=== PATIENT | female | born 2000 | race Two or more races ===

== ENCOUNTER 2024-05-08 01:13 | Emergency (ER) | payer MEDICAID, SELFPAY ==
--- NOTE | 2024-05-08 01:17 | EKG_ITS ---
[facility] Test Date: 2024-05-08 Pat Name: BRIA VILLARREAL Department: Room: - Gender: Female Production Scheduler: : 2000 Requested By: Prabhakar Godoy Order Number: [id number] Reading MD: Prabhakar Godoy Measurements Intervals [place] Rate: 89 P: 261 MD: 126 QRS: 78 QRSD: 83 T: 45 QT: 351 QTc: 429 Interpretive Statements JUNCTIONAL RHYTHM ABNORMAL RHYTHM ECG Compared to ECG 04/08/2023 23:21:50 Junctional rhythm now present Sinus tachycardia no longer present /store/S0/[id number]
[2024-05-08 01:39] VITALS: BP 112/67; PULSE 106; RESP 18; TEMP 36.9; O2SAT 96
--- NOTE | 2024-05-08 01:58 | PD.EDRME ---
Rapid Medical Screening Exam [facility] Arrival date/time: 05/08/24 01:13 23F with history of anemia presents to ED with 2 days of chest pain/tightness and N/V. Patient denies URI symptoms. Chief Complaint: Chest Pain Vital signs: Vital Signs Temperature 98.4 F 05/08/24 01:39 Pulse Rate 106 H 05/08/24 01:39 Respiratory Rate 18 05/08/24 01:39 Blood Pressure 112/67 05/08/24 01:39 Pulse Oximetry (%) 96 05/08/24 01:39 Oxygen Delivery Method Room Air 05/08/24 01:39
[2024-05-08 02:34] LABS: Basophils % (Auto) 0 % (0-2.5); Eosinophils # (Auto) 0.2 Thou/mm3 (0.0-0.5); Eosinophils % (Auto) 2 % (0-10); Hematocrit 30.4 % (36.0-46.0); Immature Granulocytes % (Auto) 0 % (0-0); Immature Granulocytes Auto 0.02 Thou/mm3 (0.00-0.00); Lymphocytes # (Auto) 5.9 Thou/mm3 (1.0-4.8); Lymphocytes % (Auto) 48 % (10-50); Mean Corpuscular HGB Conc 29.6 g/dl (31.0-37.0); Mean Corpuscular Hemoglobin 20.8 pg (25.0-35.0); Mean Corpuscular Volume 70 fL (80-100); Monocytes # (Auto) 0.7 Thou/mm3 (0.0-0.8); Monocytes % (Auto) 6 % (0-12); Neutrophils # (Auto) 5.5 Thou/mm3 (1.8-7.7); Neutrophils % (Auto) 44 % (37-80); Nucleated Red Blood Cell % 0 /100 WBC (0); Platelet Count 471 Thou/mm3 (140-440); RDW Standard Deviation 40.7 fL (36.4-46.3); Red Blood Count 4.33 Miln/mm3 (4.00-5.20); White Blood Count 12.4 Thou/mm3 (3.6-11.0)
[2024-05-08 03:09] LABS: Albumin, Serum 4.3 gm/dL (3.5-5.0); Albumin/Globulin Ratio 1.5 (1.2-2.2); Alkaline Phosphatase 73 U/L (46-116); Anion Gap 9 (7-16); Aspartate Amino Transferase 11 U/L (0-34); BUN/Creatinine Ratio 17 Ratio (12-20); Bilirubin,Total 0.2 mg/dL (0.3-1.2); Blood Urea Nitrogen 12 mg/dL (9-23); Calcium 8.9 mg/dL (8.3-10.6); Calcium (Corrected) 8.9 mg/dL (8.5-10.1); Carbon Dioxide 23.7 mMol/L (20.0-31.0); Chloride 108 mMol/L (98-107); Creatinine (Component) 0.7 mg/dL (0.6-1.3); Estimated Creatinine Clearance 158.4 mL/min (>60); Globulin 2.9 gm/dL (2.3-3.5); Glucose 98 mg/dL (74-106); Magnesium 1.8 mg/dL (1.6-2.6); Osmolality,Calculated 280 (275-295); Potassium 3.9 mMol/L (3.4-5.1); Sodium 141 mMol/L (136-145); Total Protein 7.2 gm/dL (5.7-8.2); Troponin I < 0.002 ng/mL (0.0-0.045); eGFR > 60 See Note
[2024-05-08 03:11] LABS: Alanine Aminotransferase < 7 U/L (10-49)
[2024-05-08 06:12] VITALS: BP 112/71; PULSE 95; RESP 16; TEMP 36.8; O2SAT 97
--- NOTE | 2024-05-08 06:13 | PD.EDCHEST ---
ED Chest Pain RME/HPI General Chief Complaint: Chest Pain Stated Complaint: CHEST PAIN,N/V Time Seen by Provider: 05/08/24 06:14 Source: patient Arrival date/time: 05/08/24 01:13 23-year-old female with no known medical history presents to the emergency room with a chief complaint of chest pain, nausea, vomiting x 2 days. Mode of arrival: ambulatory Limitations: no limitations RME / HPI RME / HPI narrative: 05/08/24 01:13 23F with history of anemia presents to ED with 2 days of chest pain/tightness and N/V. Patient denies URI symptoms. Related Data Previous Rx's ?Medication ?Instructions ?Recorded acetaminophen 300 mg-codeine 15 mg 1 tab PO BID PRN pain #14 tabs 05/03/23 tablet meclizine 25 mg tablet 25 mg PO TID PRN dizziness #20 tabs 11/23/23 ondansetron 4 mg disintegrating 4 mg PO Q8H PRN nausea and 11/23/23 tablet vomiting #15 tabs ferrous sulfate 325 mg (65 mg 325 mg PO Q OTHER DAY #20 tabs 05/08/24 iron) tablet (iron) ondansetron 4 mg disintegrating 4 mg PO Q8H PRN nausea and 05/08/24 tablet vomiting #14 tabs Allergies Allergy/AdvReac Type Severity Reaction Status Date / Time No Known Allergies Allergy Verified 11/27/23 20:01 Review of Systems Review of Systems Systems Reviewed: All systems reviewed, normal except as documented Constitutional Constitutional: Reports system reviewed and no additional complaints, except as documented, Denies fatigue, Denies fever(s), Denies headache(s) and Reports weakness Eyes Eyes: Reports system reviewed and no additional complaints, except as documented, Denies blurry vision and Denies change in vision ENT Ears, Nose, Mouth, and Throat: Reports system reviewed and no additional complaints, except as documented, Denies otalgia, Denies headache(s), Denies nasal congestion, Denies throat swelling and Denies vertigo Cardiovascular Cardiovascular: Reports system reviewed and no additional complaints, except as documented, Reports chest pain, Reports chest pain at rest, Reports chest pain with activity, Denies dyspnea and Denies dyspnea on exertion Respiratory Respiratory: Reports system reviewed and no additional complaints, except as documented, Denies chest congestion, Denies cough, Denies dyspnea, Denies dyspnea on exertion and Denies wheezing Gastrointestinal Gastrointestinal: Reports system reviewed and no additional complaints, except as documented, Denies abdominal pain, Denies cramping, Denies nausea and Denies vomiting Genitourinary Genitourinary: Reports system reviewed and no additional complaints, except as documented Musculoskeletal Musculoskeletal: Reports system reviewed and no additional complaints, except as documented and Denies back pain Integumentary/Breasts Skin/Breast: Reports system reviewed and no additional complaints, except as documented and Denies wounds Neurologic Neurologic: Reports system reviewed and no additional complaints, except as documented, Denies confusion, Denies headache(s), Denies lack of coordination, Denies vertigo and Reports weakness Psychiatric Psychiatric: Reports system reviewed and no additional complaints, except as documented, Denies anxiety, Denies confusion, Denies depression, Denies paranoia, Denies suicidal ideation and Denies tactile hallucinations Endocrine Endocrine: Reports system reviewed and no additional complaints, except as documented and Denies fatigue Hematologic/Lymphatic Hematologic/Lymphatic: Reports system reviewed and no additional complaints, except as documented and Denies lymphadenopathy Allergic/Immunologic Allergic/Immunologic: Reports system reviewed and no additional complaints, except as documented, Denies throat swelling, Denies urticaria and Denies wheezing Past Medical History Past Medical History NEUROLOGIC: Negative Neurological Disorders or Seizures CARDIAC: Negative Cardiac Disorders or Congestive Heart Failure RESPIRATORY: Negative Chronic Obstructive Pulmonary Disease (COPD) or Asthma GASTROINTESTINAL: Negative Gastrointestinal Disorders GENITOURINARY: Positive Genitourinary Disorders (kidney infection); Negative Renal Disease MUSCULOSKELETAL: Positive Musculoskeletal Disorders and Scoliosis ENDOCRINE: Negative Endocrine Disorders, Diabetes Mellitus Type 1 or Diabetes Mellitus Type 2 HEMATOLOGIC: Negative Blood Disorders or Sickle Cell Disease PSYCHO/SOCIAL: Positive Depression and Anxiety OTHER HISTORY: Negative Autoimmune Disease or Blood Transfusions Family History FAMILY HISTORY: Negative Family Psychiatric Problems, Family Respiratory Disorders, Family Cardiac Disorders, Family Gastrointestinal Problems, Family Cancer, Family Surgery or Family Anesthesia Reaction Surgical History SURGICAL: Positive Section Social History SMOKING STATUS: Never smoker SUBSTANCE USE: does not use ED Exam General Limitations: Present no limitations General appearance: Present alert and in no apparent distress Head Head exam: Present atraumatic Eye Eye exam: Present normal appearance, PERRL and EOMI ENT ENT exam: Present normal exam, normal oropharynx and mucous membranes moist Neck Neck exam: Present normal inspection, full ROM and trachea midline Chest Chest inspection: Present normal inspection and symmetric chest wall rise Respiratory Respiratory exam: Present normal lung sounds bilaterally; Absent respiratory distress, wheezes, stridor, accessory muscle use or prolonged expiratory phase Cardiovascular Cardiovascular exam: Present regular rate, normal rhythm, tachycardia, normal heart sounds, +S1 and +S2; Absent bradycardia, irregular rhythm, systolic murmur, diastolic murmur, rubs, gallop, clicks or JVD Abdominal Exam Abdominal exam: Present soft and normal bowel sounds; Absent distention, tenderness, guarding, rebound or rigidity Extremities Exam Extremities exam: Present normal inspection and full ROM Back Exam Back exam: Present normal inspection and full ROM Neurological Exam Neurological exam: Present alert, oriented X3 and CN II-XII intact Psychiatric Psychiatric exam: Present normal affect and normal mood Skin Skin exam: Present warm, dry, intact and normal color Course Quality Measures none Orders Category Date Time Status EKG (ED ONLY) *Do not use* NOW Care 05/08/24 01:17 Completed EKG (ED Only) Stat Exams 05/08/24 01:17 Draft CBC Stat Lab 05/08/24 02:23 Completed Comprehensive Metabolic Panel Stat Lab 05/08/24 02:23 Completed Magnesium Stat Lab 05/08/24 02:23 Completed Path Review Blood Smear Stat Lab 05/08/24 02:23 Completed Troponin I Stat Lab 05/08/24 02:23 Completed Vital Signs Vital signs: Vital Signs Temperature 98.4 F 05/08/24 01:39 Pulse Rate 106 H 05/08/24 01:39 Respiratory Rate 18 05/08/24 01:39 Blood Pressure 112/67 05/08/24 01:39 Pulse Oximetry (%) 96 05/08/24 01:39 Oxygen Delivery Method Room Air 05/08/24 01:39 O2 saturation 96% within normal limits Procedures -ED EKG Interpretation #1: Date of EK05/08/24 Rate: 89 Interpretation: Reviewed by me EKG Impression: Junctional Additional EKG comment: Patient has a junctional rhythm at [address] deviation Chest Pain [facility] Narrative [facility] Narrative:: 23-year-old female with no known medical history presents to the emergency room with a chief complaint of chest pain, nausea, vomiting x 2 days. Patient is hemodynamically stable and in no apparent distress Physical examination shows 3 out of 10 continuous sternal chest pain that does not radiate. The patient has strong and regular pulses bilaterally. Lung sounds were clear bilaterally with no wheezing or any abnormal breath sounds. Abdomen is soft and nontender with active bowel sounds to all 4 quadrants. CBC CMP showed iron deficiency anemia. Troponin was negative. There is no leukocytosis. EKG shows a junctional rhythm at [address] deviation Patient was discharged and educated to follow-up with primary care provider and return to the emergency room for any evidence of worsening signs or symptoms Patient data External records reviewed:: [facility] previous records Clinical information provided by:: patient Social determinants that could affect healthcare access:: none Patient has the following chronic illnesses:: No chronic illness How is presenting disease/condition affected by chronic disease/condition?: no chronic disease Evaluation data The following diagnostics were reviewed and interpreted by me:: lab results and radiology exam(s) Lab and/or radiology exams considered but not ordered:: Labs and radiology exams considered and ordered Interpretation Summary: N/A Medications / Prescriptions Medications or Prescriptions considered but not ordered:: Medication given Medication administrations:: Rx given Consultations Consultation(s) initiated? (list below): No Diagnosis Chest Pain Differential Diagnosis: stable angina, atypical chest pain, st elevation myocardial infarction, costochondritis and chest pain Most likely diagnosis given after review of the tests above:: Chest pain Admission Indicated Admission indicated?: not indicated Admission Request Was there a request for admission?: No Disposition Plan Disposition Plan: Discharge Discharge Attestation Discharge Attestation: The patient and all family members were given an opportunity to ask questions and understood the discharge instructions. Discharge instructions specifically effects, indications for sooner follow up or return to the emergency department, and the expected course of current diagnosis. Patient condition: Stable Discharge Plan Plan Patient Disposition: HOME (Self Care) Disposition Comment: Stable Prescriptions/Referrals Prescriptions/Med Rec: New ferrous sulfate [iron] 325 mg (65 mg iron) tablet 325 mg PO Q OTHER DAY Qty: 20 0RF ondansetron 4 mg tablet,disintegrating 4 mg PO Q8H PRN (Reason: nausea and vomiting) Qty: 14 0RF No Action meclizine 25 mg tablet 25 mg PO TID PRN (Reason: dizziness) Qty: 20 0RF ondansetron 4 mg tablet,disintegrating 4 mg PO Q8H PRN (Reason: nausea and vomiting) Qty: 15 0RF acetaminophen-codeine 300-15 mg tablet 1 tab PO BID PRN (Reason: pain) Qty: 14 0RF Referrals: Rafi Brewer MD [Primary Care Provider] - In 1 week Problem List Clinical Impression: Iron (Fe) deficiency anemia Patient/Caregiver Discharge Instructions Education Materials: Iron Supplements, ED Anemia, Iron-Deficiency (Adult) Additional Instructions: Please follow-up with your primary care provider in the next 24 to 48 hours. Your cardiac examination was within normal limits. At this time your chest pain is not cardiac related. Your blood work did show iron deficiency anemia. Iron supplementation was sent to your pharmacy please pick it up and take it as indicated. For any evidence of worsening signs or symptoms please return the emergency room immediately Print Language: Albanian Stand Alone Forms: [employer] Info., Patient Portal Info Letter PA/GOLF COURSE MANAGER Supervising Physician PA/GOLF COURSE MANAGER Supervising Physician: Dr. AVILES
[2024-05-08 14:37] LABS: Path Review Blood Smear Sent to Pathologist
== END 2024-05-08 06:17 | disposition home or self-care (01) ==
PROVIDERS: Physician Assistant; Emergency Provider Emergency Medicine; PCP Family Medicine
DX: D50.9 Iron deficiency anemia, unspecified (principal); R07.9 Chest pain, unspecified
CPT/HCPCS: 36415; 80053; 83735; 84484; 85025; 93005; 99283

== ENCOUNTER 2024-05-14 23:59 | Emergency (ER) | payer MEDICAID, SELFPAY ==
--- NOTE | 2024-05-15 00:05 | PC.NURSE ---
While doing doing triage assessment pt said she will just go to other hospital.
--- NOTE | 2024-05-15 00:05 | PD.EDADDENDU ---
Emergency Room Addendum Addendum Narrative: I called her to start evaluation and treatment. Was told she left. Navdeep Veras MD
== END 2024-05-15 00:07 | disposition left against medical advice (07) ==
PROVIDERS: Emergency Provider Emergency Medicine
DX: Z53.21 Procedure and treatment not carried out due to patient leaving prior to being seen by health care provider (principal)

== ENCOUNTER 2024-08-11 21:08 | Emergency (ER) | payer MEDICAID, SELFPAY ==
[2024-08-11 21:09] VITALS: BMI 30.8
--- NOTE | 2024-08-11 21:37 | XR_ITS ---
Examination: PA lateral chest 2 views TECHNIQUE: Upright PA and lateral chest 2 views Date and time: August 11, 2024 2152 hours INDICATIONS: Left breast pain today. FINDINGS: Subtle increased markings left base Right lung. Normal heart size IMPRESSION: Suspicious for early left basilar pneumonia
--- NOTE | 2024-08-11 21:40 | PD.EDADULT ---
ED General RME/HPI General Chief complaint: Chest Pain Stated complaint: MID CHEST PAIN RADIATES TO BREAST Time Seen by Provider: 08/11/24 21:32 Arrival date/time: 08/11/24 21:08 CC: Left nipple pain that radiates into the entire left breast ongoing for the past 24 hours progressive increase in severity not relieved with ibuprofen or Tylenol. Patient has had recurrent history of left breast pain multiple times in the past that she has had multiple workups that resulted nothing. Patient denies fever chills chest pain shortness of breath difficulty breathing is currently on her menses. No other complaints at this time Related Data Previous Rx's ?Medication ?Instructions ?Recorded acetaminophen 300 mg-codeine 15 mg 1 tab PO BID PRN pain #14 tabs 05/03/23 tablet meclizine 25 mg tablet 25 mg PO TID PRN dizziness #20 tabs 11/23/23 ondansetron 4 mg disintegrating 4 mg PO Q8H PRN nausea and 11/23/23 tablet vomiting #15 tabs ferrous sulfate 325 mg (65 mg 325 mg PO Q OTHER DAY #20 tabs 05/08/24 iron) tablet (iron) ondansetron 4 mg disintegrating 4 mg PO Q8H PRN nausea and 05/08/24 tablet vomiting #14 tabs doxycycline hyclate 100 mg capsule 100 mg PO BID #14 caps 08/11/24 gabapentin 100 mg capsule 100 mg PO BID #20 caps 08/11/24 Allergies Allergy/AdvReac Type Severity Reaction Status Date / Time No Known Allergies Allergy Verified 11/27/23 20:01 Review of Systems Review of Systems Narrative Review of Systems: GEN: No fever, no chills, no weight loss EYES: No discharge, no visual changes, no pain HEENT: No ear pain, no congestion, no sore throat PULM: No shortness of breath, no cough, no congestion CV: No chest pain, no dyspnea on exertion, no palpitations GI: No nausea, no vomiting, no diarrhea, no pain, no constipation : No frequency, no urgency, no dysuria MUSC/SKEL: No joint pain, no back pain SKIN: No rash PSYCH: No hallucinations, no depression HEME/LYMPH: No easy bleeding or bruising tendencies NEURO: No weakness, no headache Past Medical History Past Medical History NEUROLOGIC: Negative Neurological Disorders or Seizures CARDIAC: Negative Cardiac Disorders or Congestive Heart Failure RESPIRATORY: Negative Chronic Obstructive Pulmonary Disease (COPD) or Asthma GASTROINTESTINAL: Negative Gastrointestinal Disorders GENITOURINARY: Positive Genitourinary Disorders (kidney infection); Negative Renal Disease MUSCULOSKELETAL: Positive Musculoskeletal Disorders and Scoliosis ENDOCRINE: Negative Endocrine Disorders, Diabetes Mellitus Type 1 or Diabetes Mellitus Type 2 HEMATOLOGIC: Negative Blood Disorders or Sickle Cell Disease PSYCHO/SOCIAL: Positive Depression and Anxiety OTHER HISTORY: Negative Autoimmune Disease or Blood Transfusions Family History FAMILY HISTORY: Negative Family Psychiatric Problems, Family Respiratory Disorders, Family Cardiac Disorders, Family Gastrointestinal Problems, Family Cancer, Family Surgery or Family Anesthesia Reaction Surgical History SURGICAL: Positive Section Social History SMOKING STATUS: Never smoker SUBSTANCE USE: does not use ED Exam Narrative Physical exam: [General: Not in any acute distress Head normocephalic HEENT: Within acceptable limits Neck is supple nontender Chest equal chest rise nontender to palpation breast: Bilateral breast symmetrical, no dimpling no erythema no edema not firm to touch no exudate or oozing from the nipple itself. No streaking. Respiratory: Clear to auscultation no wheezes crackles or rubs CV: Rate rhythm is regular no murmurs rubs or clicks Abdomen is soft nontender no masses positive bowel sounds all 4 quadrants Back: No CVA tenderness no spinous process tenderness from cervical spine thoracic and lumbar spine Skin: Intact no petechiae rash induration ulceration or crepitus Extremities: Moving all extremity against resistance cap refill less than 2 seconds neurosensory intact Neuro: Awake alert oriented x3 Glascow coma 15 no focal deficits] Course Course Course Narrative: Read of the x-ray suspicion for left base pneumonia this may or may not be represented in the breast itself At this time patient will be addressed with antibiotics and gabapentin she is to follow-up with her primary care provider. Quality Measures none Orders Category Date Time Status XR chest 2V Stat Exams 08/11/24 21:37 Completed HCG Qualitative,Urine Stat Lab 08/11/24 21:43 Received Discharge Plan Plan Patient Disposition: HOME (Self Care) Patient condition on transfer: Stable Prescriptions/Referrals Prescriptions/Med Rec: New doxycycline hyclate 100 mg capsule 100 mg PO BID Qty: 14 0RF gabapentin 100 mg capsule 100 mg PO BID Qty: 20 0RF No Action meclizine 25 mg tablet 25 mg PO TID PRN (Reason: dizziness) Qty: 20 0RF ondansetron 4 mg tablet,disintegrating 4 mg PO Q8H PRN (Reason: nausea and vomiting) Qty: 15 0RF acetaminophen-codeine 300-15 mg tablet 1 tab PO BID PRN (Reason: pain) Qty: 14 0RF ferrous sulfate [iron] 325 mg (65 mg iron) tablet 325 mg PO Q OTHER DAY Qty: 20 0RF ondansetron 4 mg tablet,disintegrating 4 mg PO Q8H PRN (Reason: nausea and vomiting) Qty: 14 0RF Referrals: Rafi Brewer MD [Physician] - In 1 week No Primary/Family,Physician [Primary Care Provider] - In 1 week Problem List Clinical Impression: Breast pain, Pneumonia Patient/Caregiver Discharge Instructions Education Materials: Breast Anatomy, Treating Pneumonia Additional Instructions: Take the medication as prescribed if there is an improvement in the breast pain continue on this medication as needed. Take the antibiotics until completely gone if there is a worsening of symptoms return to the emergency room for reevaluation. Print Language: Italian Stand Alone Forms: [employer] Award Info., Patient Portal Info Letter, Work/School Release PA/ANIMAL CARE ATTENDANT Supervising Physician PA/ANIMAL CARE ATTENDANT Supervising Physician: Davis Ramos ENP MDM Clinical Information Provided by: patient Medical Records reviewed [facility] Meds/Rx considered, not ordered None Labs/Rad/Tests considered, not ordered None EKG EKG not done Labs Labs: none Imaging Imaging interpretation: Interpreted by me Imaging Interpretation(s): Suspicious for left base pneumonia. Diagnosis Differential Diagnosis ED Complaint MDM: Pneumonia mastitis breast abscess
[2024-08-11 22:13] VITALS: BP 113/73; PULSE 87; RESP 16; TEMP 36.7; O2SAT 98
[2024-08-11 22:13] LABS: HCG Qualitative,Urine Negative
== END 2024-08-11 22:23 | disposition home or self-care (01) ==
PROVIDERS: Registered Nurse General Practice; Emergency Provider Emergency Medicine
DX: J18.9 Pneumonia, unspecified organism (principal); N64.4 Mastodynia
CPT/HCPCS: 71046; 81025; 99283

== ENCOUNTER 2025-01-14 00:33 | Emergency (ER) | payer MEDICAID, SELFPAY ==
[2025-01-14 00:34] VITALS: BP 126/86; PULSE 96; RESP 18; TEMP 36.9; O2SAT 100
--- NOTE | 2025-01-14 00:37 | EKG_ITS ---
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
[2025-01-14 00:39] VITALS: PULSE 96; RESP 18; O2SAT 99; BMI 31.1
--- NOTE | 2025-01-14 01:03 | XR_ITS ---
EXAMINATION: PA chest single view TECHNIQUE: Upright PA chest single view Date and time: January 14, 2025, 0113 hours, comparison August 11, 2024 INDICATIONS: Intermittent chest pain months. FINDINGS: Normal heart size. Lungs are clear. Osseous structures are intact. IMPRESSION: No active disease
--- NOTE | 2025-01-14 01:04 | XR_ITS ---
Examination: Breast ultrasound, unilateral, right complete Date and time of exam: January 14, 2025, 0220 hours INDICATIONS: Right breast pain several months Technique: Real-time bolton scale ultrasonographic imaging performed right breast including all 4 quadrants as well as nipple retroareolar and axillary region. Findings: No cystic or solid mass Normal-appearing right axillary lymph node IMPRESSION: BI-RADS Category 1: Negative study If right breast pain persist, recommend repeat right breast sonography in 3 to 6 months
--- NOTE | 2025-01-14 01:06 | EDNOTE_ITS ---
ED Chest Pain RME/HPI General Chief Complaint: Chest Pain Stated Complaint: CHEST WALL PAIN Time Seen by Provider: 01/14/25 01:02 Arrival date/time: 01/14/25 00:33 24F with no significant PMH presents to ED with several months of intermittent CP. Patient has had neg cardiac work-ups before. Patient states it feels different this time because it radiates to R breast/RUE. Limitations: no limitations Related Data Previous Rx's ?Medication ?Instructions ?Recorded acetaminophen 300 mg-codeine 15 mg 1 tab PO BID PRN pa in #14 tabs 05/03/23 tablet meclizine 25 mg tablet 25 mg PO TID PRN dizziness # 20 tabs 11/23/23 ondansetron 4 mg disintegrating 4 mg PO Q8H PRN nausea and 11/23/23 tablet vomiting #15 tabs ferrous sulfate 325 mg (65 mg 325 mg PO Q OTHER DAY #2 0 tabs 05/08/24 iron) tablet (iron) ondansetron 4 mg disintegrating 4 mg PO Q8H PRN nausea and 05/08/24 tablet vomiting #14 tabs doxycycline hyclate 100 mg capsule 100 mg PO BID #14 c aps 08/11/24 gabapentin 100 mg capsule 100 mg PO BID #20 caps 08/11 Allergies Allergy/AdvReac Type Severity Reaction Status Date / Time No Known Allergies Allergy Verified 11/27/23 20:01 Review of Systems Review of Systems Systems Reviewed: All systems reviewed, normal except as documented Cardiovascular Cardiovascular: Reports as per HPI and Reports chest pain Past Medical History Past Medical History NEUROLOGIC: Negative Neurological Disorders or Seizures CARDIAC: Negative Cardiac Disorders or Congestive Heart Failure RESPIRATORY: Negative Chronic Obstructive Pulmonary Disease (COPD) or Asthma GASTROINTESTINAL: Negative Gastrointestinal Disorders GENITOURINARY: Positive Genitourinary Disorders (kidney infection); Negative Renal Disease MUSCULOSKELETAL: Positive Musculoskeletal Disorders and Scoliosis ENDOCRINE: Negative Endocrine Disorders, Diabetes Mellitus Type 1 or Diabetes Mellitus Type 2 HEMATOLOGIC: Negative Blood Disorders or Sickle Cell Disease PSYCHO/SOCIAL: Positive Depression and Anxiety OTHER HISTORY: Negative Autoimmune Disease or Blood Transfusions Family History FAMILY HISTORY: Negative Family Psychiatric Problems, Family Respiratory Disorders, Family Cardiac Disorders, Family Gastrointestinal Problems, Family Cancer, Family Surgery or Family Anesthesia Reaction Surgical History SURGICAL: Positive Section Social History SMOKING STATUS: Never smoker SUBSTANCE USE: does not use ED Exam General Limitations: Present no limitations General appearance: Present alert and in no apparent distress Head Head exam: Present atraumatic Neck Neck exam: Present normal inspection, full ROM and trachea midline Chest Chest inspection: Present symmetric chest wall rise and tenderness Respiratory Respiratory exam: Present normal lung sounds bilaterally Neurological Exam Neurological exam: Present alert and oriented X3 Psychiatric Psychiatric exam: Present normal affect and normal mood Skin Skin exam: Present warm, dry, intact and normal color Course Quality Measures none Orders Category Date Time Status EKG (ED ONLY) *Do not use* NOW Care 01/14/25 00:37 Completed EKG (ED Only) Stat Exams 01/14/25 00:37 Draft US breast RT complete Stat Exams 01/14/25 01:04 Taken XR chest 1V portable Stat Exams 01/14/25 01:03 Taken CBC Stat Lab 01/14/25 01:15 Completed Comprehensive Metabolic Panel Stat Lab 01/14/25 01:15 Completed D-Dimer Stat Lab 01/14/25 01:15 Completed Troponin I Stat Lab 01/14/25 01:15 Completed Vital Signs Vital signs: Vital Signs Temperature 98.4 F 01/14/25 00:34 Pulse Rate 96 01/14/25 00:34 Respiratory Rate 18 01/14/25 00:34 Blood Pressure 126/86 H 01/14/25 00:34 Pulse Oximetry (%) 100 01/14/25 00:34 Oxygen Delivery Method Room Air 01/14/25 00:34 O2 at 100% on RA and WNLs Chest Pain MDM Narrative MDM Narrative:: 24F with no significant PMH presents to ED with several months of intermittent CP. Patient has had neg cardiac work-ups before. Patient states it feels different this time because it radiates to R breast/RUE. Physical exam reveals chest wall tenderness. Clear lungs and normal WOB. RUE exam unremarkable. Patient is afebrile, calm, and alert. EKG is NSR. Wet CXR reading unremarkable pending official report. Minimal leukocytosis or gross anemia. CMP unremarkable. Trop and D-dimer normal. US telerad enlarged lymph node in R axilla. Upon reassessment, R breast exam with publishing specialist Rachele BUENROSTRO, is unremarkable with no redness or swelling. Patient data External records reviewed:: [facility] previous records Clinical information provided by:: patient Social determinants that could affect healthcare access:: none Patient has the following chronic illnesses:: none How is presenting disease/condition affected by chronic disease/condition?: no chronic disease Evaluation data The following diagnostics were reviewed and interpreted by me:: lab results, radiology exam(s) and EKG tracing(s) Lab and/or radiology exams considered but not ordered:: ordered Interpretation Summary: above Medications / Prescriptions Medications or Prescriptions considered but not ordered:: not ordered Medication administrations:: n/a Consultations Consultation(s) initiated? (list below): No Diagnosis Chest Pain Differential Diagnosis: fracture of rib, pneumothorax, stable angina, unstable angina pectoris, atypical chest pain, st elevation myocardial infarction, costochondritis, chest pain, biliary colic and other (PE, lymphadenopathy) Most likely diagnosis given after review of the tests above:: costochondritis, lymphadenopathy, axilla, atypical chest pain Admission Indicated Admission indicated?: not indicated Admission Request Was there a request for admission?: No Disposition Plan Disposition Plan: Discharge Discharge Attestation Discharge Attestation: The patient and all family members were given an opportunity to ask questions and understood the discharge instructions. Discharge instructions specifically effects, indications for sooner follow up or return to the emergency department, and the expected course of current diagnosis. Patient condition: Stable Discharge Plan Plan Patient Disposition: HOME (Self Care) Discharge Disposition comment: Stable Prescriptions/Referrals Prescriptions/Med Rec: No Action meclizine 25 mg tablet 25 mg PO TID PRN (Reason: dizziness) Qty: 20 0RF ondansetron 4 mg tablet,disintegrating 4 mg PO Q8H PRN (Reason: nausea and vomiting) Qty: 15 0RF acetaminophen-codeine 300-15 mg tablet 1 tab PO BID PRN (Reason: pain) Qty: 14 0RF ferrous sulfate [iron] 325 mg (65 mg iron) tablet 325 mg PO Q OTHER DAY Qty: 20 0RF ondansetron 4 mg tablet,disintegrating 4 mg PO Q8H PRN (Reason: nausea and vomiting) Qty: 14 0RF doxycycline hyclate 100 mg capsule 100 mg PO BID Qty: 14 0RF gabapentin 100 mg capsule 100 mg PO BID Qty: 20 0RF Referrals: No Primary/Family,Physician [Primary Care Provider] - In 1 week Problem List Clinical Impression: Lymphadenopathy, axillary, Atypical chest pain, Costochondritis Patient/Caregiver Discharge Instructions Education Materials: Lymphadenopathy, ED Chest Pain, Uncertain Cause, ED Chest Wall Pain, Costochondritis Additional Instructions: Please follow-up with PCP within 24-48 hours and return immediately if symptoms worsen. Can go to cardiology referral. See PCP to monitor R axilla lymph node and/or additional evluation. Print Language: Bol[place]ian Stand Alone Forms: Patient Portal Info Letter PA/DRIVER OPERATOR Supervising Physician PA/DRIVER OPERATOR Supervising Physician: Dr. Hogan
[2025-01-14 01:35] LABS: Basophils # (Auto) 0.0 Thou/mm3 (0.0-0.2); Basophils % (Auto) 0 % (0-2.5); Eosinophils # (Auto) 0.3 Thou/mm3 (0.0-0.5); Eosinophils % (Auto) 3 % (0-10); Hematocrit 35.8 % (36.0-46.0); Hemoglobin 11.7 g/dL (12.0-16.0); Immature Granulocytes Auto 0.03 Thou/mm3 (0.00-0.00); Lymphocytes # (Auto) 4.5 Thou/mm3 (1.0-4.8); Lymphocytes % (Auto) 40 % (10-50); Mean Corpuscular HGB Conc 32.7 g/dl (31.0-37.0); Mean Corpuscular Hemoglobin 27.0 pg (25.0-35.0); Mean Corpuscular Volume 83 fL (80-100); Monocytes # (Auto) 0.7 Thou/mm3 (0.0-0.8); Monocytes % (Auto) 6 % (0-12); Neutrophils # (Auto) 5.7 Thou/mm3 (1.8-7.7); Neutrophils % (Auto) 51 % (37-80); Nucleated Red Blood Cell # 0.00 Thou/mm3 (0.00-0.00); Nucleated Red Blood Cell % 0 /100 WBC (0); Platelet Count 390 Thou/mm3 (140-440); RDW Standard Deviation 41.6 fL (36.4-46.3); Red Blood Count 4.34 Miln/mm3 (4.00-5.20); White Blood Count 11.2 Thou/mm3 (3.6-11.0)
[2025-01-14 01:52] LABS: D-Dimer < 250 ng/mL (<600)
[2025-01-14 02:08] LABS: Alanine Aminotransferase 7 U/L (10-49); Albumin, Serum 4.2 gm/dL (3.5-5.0); Albumin/Globulin Ratio 1.5 (1.2-2.2); Alkaline Phosphatase 69 U/L (46-116); Anion Gap 9 (7-16); Aspartate Amino Transferase 14 U/L (0-34); BUN/Creatinine Ratio 8 Ratio (12-20); Bilirubin,Total 0.2 mg/dL (0.3-1.2); Blood Urea Nitrogen 6 mg/dL (9-23); Calcium 9.3 mg/dL (8.3-10.6); Calcium (Corrected) 9.3 mg/dL (8.5-10.1); Carbon Dioxide 24.2 mMol/L (20.0-31.0); Chloride 108 mMol/L (98-107); Creatinine (Component) 0.8 mg/dL (0.6-1.3); Estimated Creatinine Clearance 110.4 mL/min (>60); Globulin 2.8 gm/dL (2.3-3.5); Glucose 102 mg/dL (74-106); Osmolality,Calculated 278 (275-295); Potassium 4.1 mMol/L (3.4-5.1); Sodium 141 mMol/L (136-145); Total Protein 7.0 gm/dL (5.7-8.2); Troponin I < 0.002 ng/mL (0.0-0.045); eGFR > 60 See Note
--- NOTE | 2025-01-14 03:47 | PRELIM_ITS ---
Right breast ultrasound. January 14, 2025 0220 hours Clinical history: Right breast pain. Comparison: No prior study is available for comparison. Findings and impression: Enlarged right axillary lymph node measuring 1.1 x 1.6 x 3.1 cm. No right breast mass or fluid collection. Report Electronically Signed By: Prateek Howe 01/14/2025 3:47:32 AM [EST]
== END 2025-01-14 04:09 | disposition home or self-care (01) ==
PROVIDERS: Physician Assistant; Emergency Provider Emergency Medicine
DX: M94.0 Chondrocostal junction syndrome [Tietze] (principal)
CPT/HCPCS: 36415; 71045; 76641; 80053; 84484; 85025; 85379; 93005; 99283